=== PATIENT | female | born 1955 | race African-American/Black ===

== ENCOUNTER 2017-10-30 10:34 | Emergency (ER) | payer MEDICARE ==
[2017-10-30 11:38] LABS: #Eosinphils 0.2 thou/uL (0.0-0.7); #Lymphocytes 1.6 thou/uL (1.20-3.40); #Monocytes 0.5 thou/uL (0.11-0.59); %Basophils 0.7 % (0.0-1.0); %Eosinophils 3.4 % (0.0-10.0); %Lymphocytes 24.6 % (21.0-51.0); %Monocytes 8.1 % (0.0-10.0); %Neutrophils 63.2 % (42.0-75.0); Hemoglobin 14.6 g/dL (12.0-16.0); Mean Corpuscular HGB CONC 32.7 g/dL (32.0-36.0); Mean Corpuscular Hemoglobin 29.1 pg (27.0-31.0); Mean Platelet Volume 7.5 fL (7.4-10.4); Platelet Count 254 thou/uL (130-400); RBC Distribution Width 13.4 % (11.5-14.5); Red Blood Cell (RBC) Count 5.01 mill/uL (4.20-5.40); White Blood Cell (WBC) Count 6.4 thou/uL (4.8-10.8)
[2017-10-30 12:00] LABS: ALT (SGPT) 15 U/L (8-55); AST (SGOT) 15 U/L (5-34); Albumin 4.2 g/dL (3.4-4.8); Alkaline Phosphatase 128 U/L (40-150); Anion Gap 15 mmol/L (10-20); BUN (Urea Nitrogen) 18 mg/dL (9.8-20.1); Bilirubin, Total 0.4 mg/dL (0.2-1.2); Calc. Creatinine Clearance 0 mL/min (70-130); Calcium 9.7 mg/dL (7.8-10.44); Carbon Dioxide 18 mmol/L (23-31); Chloride 106 mmol/L (98-107); Estimated GFR-MDRD 54; Globulin 3.1 g/dL (2.4-3.5); Glucose 124 mg/dL (80-115); Lipase 57 U/L (8-78); Potassium 4.4 mmol/L (3.5-5.1); Protein, Total 7.3 g/dL (6.0-8.3); Sodium 135 mmol/L (136-145)
[2017-10-30] MEDS ORDERED: Ondansetron ODT 8 MG TAB ONE (12:55)
[2017-10-30] MEDS ORDERED: Morphine 10 MG/ML VIAL ONE (12:55)
[2017-10-30] MEDS ORDERED: ISOVUE-370 76%-LOCM 1 ML ONE (13:08)
[2017-10-30 13:18] LABS: Bilirubin Negative (Negative); Blood, Urine Negative (Negative); Clarity CLEAR (Clear); Glucose, Urine (Dipstick) Negative (Negative); Leukocyte Trace (Negative); Nitrite Negative (Negative); Protein, Urine (Dipstick) Negative (Neg-Trace); Specific Gravity, Urine 1.014 (1.002-1.036); Urobilinogen 0.2 mg/dL (0.2-1.0); pH, Urine 5.5 (5.0-9.0)
[2017-10-30 13:20] LABS: Bacteria/HPF 3+ HPF (None Seen); Hyaline Casts/LPF 4-6 HYALINE CAST LPF (0-3 Hyaline); Pathc Cast-AUWi Flag 0.58 (0-2.49); RBC/HPF 0-3 HPF (0-3); Squamous Epithelial 0-3 HPF (0-3)
--- NOTE | 2017-10-30 13:22 | CT ---
CT SCAN ABDOMEN AND PELVIS WITH IV CONTRAST: Date: 10/30/17 HISTORY: 62-year-old female with history of left hip pain and left lower quadrant pain for 2 days. FINDINGS: The lung bases are clear. Three vessel coronary artery calcific disease. Granuloma calcification rodríguez ges noted with calcified lymph nodes in the paraesophageal and left lower lobe, evidence for old gran ulomatous disease. The liver, gallbladder, pancreas, spleen, and adrenal glands are unremarkable. No renal calculus or acute obstruction. There appears to be a loop of bowel involved with an umbilica l or periumbilical hernia, but without evidence for proximal dilatation or obstruction. This does not have a significant change when compared to the 10/22/13 CT. Postoperative changes in the region of t he cecum. No abscess, adenopathy, or abnormal fluid collection. IMPRESSION: No significant acute process in the abdomen or pelvis. Loop of small bowel involved with an umbilical hernia, but without evidence for proximal small bowel obstruction or strangulation, with overall camden earance being little changed when compared to the prior study of 10/22/13. No obstruction. No charissa l obstruction. No other significant acute process. POS: [facility]
[2017-10-30 13:27] LABS: Renal Epithelial None Seen HPF (0-3); Transitional Epithelial NONE SEEN HPF (0-3)
== END 2017-10-30 13:56 | disposition home or self-care (01) ==
LOC: ERS 10:34
DX: N39.0 Urinary tract infection, site not specified (principal); R10.32 Left lower quadrant pain; I10 Essential (primary) hypertension; E11.9 Type 2 diabetes mellitus without complications; Z79.82 Long term (current) use of aspirin; Z79.899 Other long term (current) drug therapy; Z79.84 Long term (current) use of oral hypoglycemic drugs
CPT/HCPCS: 36415; 74177; 80053; 81003; 81015; 83690; 85025; 96374; J2270

== ENCOUNTER 2018-02-04 09:39 | Outpatient (CLI) | payer MEDICARE ==
--- NOTE | 2018-02-05 12:04 | MMO ---
BILATERAL MAMMOGRAMS: DATE: 02/04/18 HISTORY: Screening mammography. COMPARISON: 04/10/12. FINDINGS: Scattered fibroglandular densities and benign-appearing calcifications. No dominant mass or suspiciou s calcifications. The study was evaluated with the assistance of computer-aided detection. IMPRESSION: BIRADS 1: Negative Suggest routine follow-up. POS: [facility]
== END 2018-02-04 09:40 | disposition home or self-care (01) ==
LOC: SCSMAMMO 09:39
PROVIDERS: ATTEND Nurse Practitioner
DX: Z12.31 Encounter for screening mammogram for malignant neoplasm of breast (principal)
CPT/HCPCS: 77067

== ENCOUNTER 2019-05-15 09:55 | Inpatient (IN) | payer MEDICARE ==
[2019-05-15 10:28] LABS: Hemoglobin 17.1 g/dL (12.0-16.0); Mean Corpuscular HGB CONC 33.1 g/dL (32.0-36.0); Mean Corpuscular Hemoglobin 28.9 pg (27.0-31.0); Mean Corpuscular Volume 87.5 fL (78.0-98.0); Mean Platelet Volume 10.2 fL (7.4-10.4); Platelet Count 148 thou/uL (130-400); RBC Distribution Width 14.5 % (11.5-14.5); Red Blood Cell (RBC) Count 5.93 mill/uL (4.20-5.40); White Blood Cell (WBC) Count 4.4 thou/uL (4.8-10.8)
[2019-05-15 10:48] LABS: Band 2 % (5-11); Eosinophils 2 % (0-10); Lymphocytes 31 % (21-51); MDiff Complete? YES; Metamyelocyte 1 % (0-0); Monocytes 6 % (0-10); Neutrophil 54 % (42-75); RBC Morphology Normal; Reactive Lymphocytes 4 % (0-10)
--- NOTE | 2019-05-15 10:54 | RAD ---
PORTABLE CHEST: Date: 05/15/19 HISTORY: Cough. COMPARISON: 07/28/18. FINDINGS: Heart size and mediastinum are within normal limits. Lungs are clear of infiltrates. Left-sided MediP ort catheter is present. IMPRESSION: No active intrathoracic disease. POS: [facility]
[2019-05-15] MEDS ORDERED: Aspirin Chewable 81 MG TAB ONE (11:32)
[2019-05-15 12:07] LABS: Albumin 1.7 g/dL (3.4-4.8)
[2019-05-15 12:08] LABS: Chloride 125 mmol/L (98-107); Sodium 144 mmol/L (136-145)
[2019-05-15 12:10] LABS: Globulin 1.3 g/dL (2.4-3.5); Glucose 61 mg/dL (80-115)
[2019-05-15 12:11] LABS: Anion Gap 9 mmol/L (10-20); Carbon Dioxide 12 mmol/L (23-31)
[2019-05-15 12:12] LABS: Bilirubin, Total 0.3 mg/dL (0.2-1.2)
[2019-05-15 12:13] LABS: Alkaline Phosphatase 36 U/L (40-110); Calc. Creatinine Clearance 0 mL/min (70-130); Estimated GFR-MDRD 35
[2019-05-15 12:14] LABS: BUN (Urea Nitrogen) 48 mg/dL (9.8-20.1)
[2019-05-15 12:15] LABS: AST (SGOT) 19 U/L (5-34)
[2019-05-15 12:16] LABS: ALT (SGPT) 11 U/L (8-55)
[2019-05-15 12:20] LABS: Calcium 3.9 mg/dL (7.8-10.44); Potassium 1.8 mmol/L (3.5-5.1)
[2019-05-15] MEDS ORDERED: Lidocaine 1% PF 5 ML VIAL ONE (12:25)
--- NOTE | 2019-05-15 14:13 | RAD ---
Portable frontal chest radiograph: 05/15/2019 COMPARISON: 05/15/2019 HISTORY: Central line placement FINDINGS: This study was performed at 1:37 PM and compared to the prior study performed at 10:11 AM. There is a stable CT injectable left-sided Port-A-Cath. There is a new right-sided vascular catheter, distal tip overlying the region of the SVC. Linear density in the mid right lung zone may represent a suture line. No pneumothorax, pleural fluid , focal consolidation, or alveolar edema. There is atherosclerotic calcification of the aortic arch. IMPRESSION: Portable frontal chest radiograph following placement of right-sided vascular catheter as detailed above.
--- NOTE | 2019-05-15 14:17 | CT ---
Head CT without contrast 05/15/2019: COMPARISON: 12/07/2018 HISTORY: Weakness, hypotension TECHNIQUE: Axial CT imaging at 5 mm intervals from vertex through skull base without contrast FINDINGS: There is cerebral volume loss/encephalomalacia within the left frontal lobe with associated focal periventricular, deep, and subcortical white matter hypodensity suggesting prior infarction. There is a partially calcified mass within the posterior lateral aspect of the posterior fossa on the right measuring 2.2 cm, similar when compared to the prior examination. This suggests a calcified meningioma. Follow-up neurosurgical surgical consultation is advised. IMPRESSION: Stable head CT as described above. No intracranial hemorrhage.
[2019-05-15 14:33] LABS: ALT (SGPT) 25 U/L (8-55); AST (SGOT) 42 U/L (5-34); Albumin 3.9 g/dL (3.4-4.8); Alkaline Phosphatase 80 U/L (40-110); Anion Gap 18 mmol/L (10-20); BUN (Urea Nitrogen) 86 mg/dL (9.8-20.1); Bilirubin, Total 0.6 mg/dL (0.2-1.2); Calc. Creatinine Clearance 0 mL/min (70-130); Calcium 8.7 mg/dL (7.8-10.44); Carbon Dioxide 20 mmol/L (23-31); Chloride 103 mmol/L (98-107); Estimated GFR-MDRD 14; Globulin 2.9 g/dL (2.4-3.5); Glucose 94 mg/dL (80-115); Protein, Total 6.8 g/dL (6.0-8.3); Sodium 137 mmol/L (136-145)
--- NOTE | 2019-05-15 14:35 | CT ---
CT ANGIOGRAM OF THE CHEST: HISTORY: Chest pain. COMPARISON: None. TECHNIQUE: CT angiogram of the chest is performed in the axial plane. Three-dimensional reformatted images are s ubmitted for interpretation. FINDINGS: Mediastinum: There is an enlarged subcarinal lymph node measuring 1.7 x 1.5 cm. Calcified subcarinal lymph nodes are noted. Heart: Normal size. No significant pericardial fluid. Aorta: No aneurysm or dissection. Upper solid abdominal viscera: No abnormality enhancement. Trachea and central bronchi: Patent. Pleural spaces: No effusion. Lung parenchyma: Patchy groundglass opacities throughout the lung parenchyma suggesting multifocal in filtrate. Linear opacity in the right upper lobe likely represents scar from previous partial resection of the right upper lobe. Calcified granuloma in the left lung base. Pneumothorax: None. Osseous structures: No lytic or blastic lesions. Pulmonary arteries: Adequate contrast opacification pulmonary arterial system to the level of segment al arteries. No filling defect to suggest pulmonary embolism. IMPRESSION: 1. No evidence of pulmonary artery embolism to the level of the segmental arteries. 2. Enlarged subcarinal lymph node. Correlate clinically. Consider PET imaging. 3. Partial resection of the right upper lobe. CODE T Transcribed Date/Time: 05/15/2019 2:50 PM
[2019-05-15] MEDS ORDERED: Acetaminophen 325 MG TAB PO PRN (15:00)
[2019-05-15] MEDS ORDERED: Ondansetron PF 4 MG/2 ML Vial IVP PRN (15:00)
[2019-05-15] MEDS ORDERED: Ondansetron ODT 4 MG TAB SL PRN (15:00)
[2019-05-15] MEDS ORDERED: Iopamidol-370 76% 500 ML 1 ML ONE (15:13)
[2019-05-15 16:27] LABS: Troponin I 0.053 ng/mL (< 0.028)
[2019-05-15] MEDS: Lactated Ringer's 1,000 ML IV SCH (18:18)
[2019-05-15 18:26] VITALS: BMI 37.1
--- NOTE | 2019-05-15 18:34 | PDOC.HHP ---
Hospitalist HPI - History of Present Illness weakness, URI symptoms History of Present Illness: This is a 53 year old female who presented with persistent URI symptoms and generaliized weakness. The patient states on the she began having a sore throat and dry cough. She went to see her doctor who gave her cough syrup. A few days after that she started having diarrhea 3-4 times a day, nausea and persistent vomiting. Patient states she hasn't eaten for the past one week because she was scared to. She felt that she had a fever but didn't check her temperature. She denies sick contacts. SHe denies runny nose. She denies chest pain or shortness of breath. She complains of only a mild headache. In addition , the past one week the patient states her vision has been blurry slightly and she has been seeing objects that don't exist. She went to see her PCP today who was unable to get a blood pressure on her and told her to go to the ER. The patient reports history of metastatic colon cancer to her lung back in 2010. She had chemo done and a resection of lung metastases in 2011. She says her last PET scan was in 2013 at [facility] and she hasn't followed up since then. She has not lost weight. ED Course: The patient had initial labs which showed hypokalemia however after speaking with resident, it was thought that it was accidentally drawn from her line. She had a chest X ray which was normal, CTA showed no PE but enlarged subcarinal lymph node. CT head showed partially calcified mass within posterior lateral aspect of posterior fossa measuring 2.2 cm. Patient had difficulty getting IV access, right IJ was placed. Blood pressure was initially systolic 90, after 1L normnal saline it was normal. She was started on maintenance fluids. Additionally troponin was slightly elevated, but G normal. Hospitalist ROS - Review of Systems Constitutional: reports: fever. denies: chills Eyes: reports: vision change (visual hallucinations) ENT: denies: ear discharge Respiratory: reports: cough. denies: shortness of breath, pleuritic pain, sputum Cardiovascular: denies: chest pain, palpitations, orthopnea Gastrointestinal: reports: nausea, vomiting, abdominal pain (from coughing), diarrhea Musculoskeletal: denies: neck pain, shoulder pain Neurological: reports: other (tingling in his feet). denies: weakness All other systems reviewed; all pertinent +/- noted in HPI/Subj - Medication Medications: Active Medications Generic Name Dose Route Start Last Admin Trade Name Viola PRN Reason Stop Dose Admin Lactated Ringer's 1,000 mls @ 125 mls/hr 05/15/19 15:00 05/15/19 18:18 Lactated Ringer's IV 05/16/19 15:01 1,000 mls .Q8H RIN Administration Hospitalist History - Past Medical History Cardiac: reports: HTN, Hyperlipidemia Heme/Onc: reports: Cancer (has history of colon cancer with metastases to the lungs. Surgical resection of lung mets and colon) - Past Surgical History Other Surgical History: Colectomy from colon cancer Hysterectomy Lung surgery for l ibrahima metastases - Family History Family History: reports: hypertension - Social History Smoking Status: Never smoker Alcohol: reports: None (Quit drinking alcohol 5-6 years ago) Drugs: denies: none Living Situation: Alone - Exam General Appearance: NAD, awake alert General - other findings: Morbidly obese Eye: PERRL, anicteric sclera Eye - other findings: Visual acuity normal. Possible cataract right eye? ENT: normocephalic atraumatic, no oropharyngeal lesions Neck: supple, symmetric, no JVD Heart: RRR, no murmur, no gallops, no rubs Respiratory: CTAB, no wheezes, no rales, no ronchi, no tachypnea Gastrointestinal: soft, non-tender, non-distended Extremities: no cyanosis, no clubbing, no edema Skin: normal turgor, no lesions, no rashes Neurological: cranial nerve grossly intact, normal sensation to touch, no focal deficits, no new deficit Musculoskeletal: normal tone, normal strength, no muscle wasting Psychiatric: normal affect, normal behavior, A&O x 3 Hospitalist Results - Labs Result Diagrams: 05/15/19 10:17 05/15/19 13:45 Lab results: WBC 4.4 thou/uL (4.8-10.8) L 05/15/19 10:17 Hgb 17.1 g/dL (12.0-16.0) H 05/15/19 10:17 Hct 51.8 % (36.0-47.0) H 05/15/19 10:17 MCV 87.5 fL (78.0-98.0) 05/15/19 10:17 Plt Count 148 thou/uL (130-400) 05/15/19 10:17 Band Neuts % (Manual) 2 % (5-11) L 05/15/19 10:17 Sodium 137 mmol/L (136-145) 05/15/19 13:45 Potassium 4.0 mmol/L (3.5-5.1) 05/15/19 13:45 Chloride 103 mmol/L (98-107) 05/15/19 13:45 Carbon Dioxide 20 mmol/L (23-31) L 05/15/19 13:45 BUN 86 mg/dL (9.8-20.1) H 05/15/19 13:45 Creatinine 3.95 mg/dL (0.6-1.1) H 05/15/19 13:45 Glucose 94 mg/dL (80-115) 05/15/19 13:45 Calcium 8.7 mg/dL (7.8-10.44) 05/15/19 13:45 Total Bilirubin 0.6 mg/dL (0.2-1.2) 05/15/19 13:45 AST 42 U/L (5-34) H 05/15/19 13:45 ALT 25 U/L (8-55) 05/15/19 13:45 Alkaline Phosphatase 80 U/L (40-110) 05/15/19 13:45 Creatine Kinase 389 U/L (29-168) H 05/15/19 11:34 CK-MB (CK-2) 9.0 ng/mL (0-6.6) H* 05/15/19 10:17 Troponin I 0.053 ng/mL (< 0.028) H 05/15/19 14:57 B-Natriuretic Peptide Less than 10.0 pg/mL (0-100) 05/15/19 10:17 Serum Total Protein 6.8 g/dL (6.0-8.3) 05/15/19 13:45 Albumin 3.9 g/dL (3.4-4.8) 05/15/19 13:45 Lipase 271 U/L (8-78) H 05/15/19 10:17 - EKG Interpretation EKG: NSR Hospitalist H&P A/P - Plan Plan: Chest Xray: no acute disease CTA: no PE, enlarged subcarinal lymph node. Consider PET. Partial resection of right upper lobe CT head: no acute disease. Partially calcified mass within posterior lateral aspect of posterior fossa on right measuring 2.2 cm This is a 63 year old female with history of hypertension, colon cancer metastatic to the lung who presents with sore throat, coughing, diarrhea, abdominal pain and vomiting for the past one week. Found to have ALEJANDRA, troponin elevation, given IV fluids, admitted for further evaluation #ALEJANDRA - creatinine 3.95, baseline creatinine was 1.00, currently 3. Will continue with IV fluids - hold lisinopril/HCTZ, hold metoprolol - will obtain renal ultrasound #Dry cough - possibly viral #Enlarged subarinal lymph node - send flu swab. CTA shows no pneumonia. Enlarged subcarinal lymph node present. Needs outpatient PET - consider pulm consult - kate hansen #Nausea/Vomiting #Diarrhea #History of colon cancer with mets to the lung - will send stool culture - flu swab - CT abdomen with contrast when ALEJANDRA resolves to rule out malignancy #Visual hallucinations #Posterior fossa mass - per patient, had neurosurgery evaluation done in [facility] who told her NTD unless symptomatic - will obtain MRI brain - obtain records from [facility] - visual acuity intact both eyes. Has cloudy lens right pupil so may have cataract, difficult to examine left eye since patient has difficulty keeping it open Elevated troponin - no chest pain, EKG normal. Likely dehydration - continue to trend, monitor on tele #Weakness - consult PT #TYPE II Diabetes with neuropathy - continue pregabalin - hold metformin and invokana due to ALEJANDRA - insulin sliding scale - fingersticks achs - continue aspirin and statin DVT prophylaxis: ambulation Code status: full code
[2019-05-15] MEDS ORDERED: Benzonatate 100 MG CAP PO PRN (19:40)
[2019-05-15] MEDS ORDERED: Dextrose 50% Abboject 50 ML SYRINGE SLOW IVP PRN (19:42)
[2019-05-15] MEDS ORDERED: Dextrose 5% in Water 1,000 ML IV PRN (19:42)
[2019-05-15] MEDS ORDERED: HumaLOG 300 UNITS/3 ML VIAL SC PRN (19:42)
[2019-05-15 20:30] LABS: Hemoglobin 14.1 g/dL (12.0-16.0); Lymphocytes 47 % (21-51); MDiff Complete? YES; Mean Corpuscular HGB CONC 32.9 g/dL (32.0-36.0); Mean Corpuscular Hemoglobin 28.5 pg (27.0-31.0); Mean Corpuscular Volume 86.6 fL (78.0-98.0); Mean Platelet Volume 9.2 fL (7.4-10.4); Monocytes 8 % (0-10); Neutrophil 44 % (42-75); Platelet Count 136 thou/uL (130-400); Platelet Morphology Comment Appears Adequate; RBC Distribution Width 13.9 % (11.5-14.5); Reactive Lymphocytes 1 % (0-10); Red Blood Cell (RBC) Count 4.95 mill/uL (4.20-5.40); White Blood Cell (WBC) Count 4.6 thou/uL (4.8-10.8)
[2019-05-15 20:43] LABS: CKMB 10.2 ng/mL (0-6.6)
[2019-05-16] MEDS: Lactated Ringer's 1,000 ML IV SCH ×3 (02:09→13:57)
[2019-05-16 05:08] LABS: #Lymphocytes 1.3 thou/uL (1.20-3.40); #Monocytes 0.5 thou/uL (0.11-0.59); #Neutrophils 2.6 thou/uL (1.40-6.50); %Basophils 0.9 % (0.0-1.0); %Eosinophils 0.9 % (0.0-10.0); %Lymphocytes 28.9 % (21.0-51.0); %Monocytes 11.5 % (0.0-10.0); %Neutrophils 57.7 % (42.0-75.0); Hemoglobin 13.7 g/dL (12.0-16.0); Mean Corpuscular HGB CONC 33.3 g/dL (32.0-36.0); Mean Corpuscular Hemoglobin 28.9 pg (27.0-31.0); Mean Corpuscular Volume 86.7 fL (78.0-98.0); Mean Platelet Volume 9.4 fL (7.4-10.4); Platelet Count 135 thou/uL (130-400); RBC Distribution Width 13.9 % (11.5-14.5); Red Blood Cell (RBC) Count 4.76 mill/uL (4.20-5.40); White Blood Cell (WBC) Count 4.4 thou/uL (4.8-10.8)
[2019-05-16 05:43] LABS: ALT (SGPT) 23 U/L (8-55); AST (SGOT) 43 U/L (5-34); Albumin 3.7 g/dL (3.4-4.8); Alkaline Phosphatase 81 U/L (40-110); Anion Gap 15 mmol/L (10-20); BUN (Urea Nitrogen) 58 mg/dL (9.8-20.1); Bilirubin, Total 0.8 mg/dL (0.2-1.2); Calc. Creatinine Clearance 47 mL/min (70-130); Calcium 8.8 mg/dL (7.8-10.44); Carbon Dioxide 24 mmol/L (23-31); Chloride 105 mmol/L (98-107); Estimated GFR-MDRD 35; Globulin 2.6 g/dL (2.4-3.5); Glucose 102 mg/dL (80-115); Potassium 3.6 mmol/L (3.5-5.1); Protein, Total 6.3 g/dL (6.0-8.3); Sodium 140 mmol/L (136-145)
[2019-05-16] MEDS ORDERED: Loperamide HCl 2 MG CAP PO PRN (06:07)
[2019-05-16] MEDS ORDERED: Loperamide HCl 2 MG CAP PO SCH (06:15)
[2019-05-16] MEDS: Pregabalin 50 MG CAP PO SCH (09:00)
[2019-05-16] MEDS: Clopidogrel Bisulfate 75 MG TAB PO SCH (09:01)
[2019-05-16] MEDS: Aspirin 325 mg Enteric Coated Tablet PO SCH (09:01)
[2019-05-16] MEDS: Atorvastatin Calcium 40 MG TAB PO SCH (09:01)
--- NOTE | 2019-05-16 09:14 | ULT ---
RENAL ULTRASOUND: DATE: 05/16/2019. COMPARISON: None. HISTORY: Elevated creatinine with nausea and vomiting. TECHNIQUE: Multiplanar, schmitt scale sonographic imaging of the kidneys and urinary bladder obtained. FINDINGS: The left kidney measures 9.0 x 4.7 x 4.2 cm and the right kidney measures 9.3 x 4.6 x 4.5 cm. No kassie al mass, hydronephrosis, or renal stone appreciated on either side. Urinary bladder is grossly unrem arkable. IMPRESSION: Unremarkable renal ultrasound. POS: [facility]
--- NOTE | 2019-05-16 09:20 | MRI ---
BRAIN MRI WITHOUT CONTRAST: DATE: 05/16/2019. COMPARISON: None. HISTORY: History of colon cancer, visual hallucinations, meningioma. TECHNIQUE: Multiplanar, multisequence MRI imaging of the brain is provided without contrast. FINDINGS: The lack of contrast media limits assessment for intracranial metastatic disease. The diffusion weig hted imaging demonstrates a tiny focus of increased signal intensity near the vertex involving the po sterior aspect of the left frontal lobe, measuring approximately 4 mm. Its small size makes it diffi cult to fully assess on the AC map. This could represent a tiny focus of acute infarction but could also potentially represent a tiny metastatic lesion. The gradient echo imaging demonstrates no evide nce for intracranial hemorrhage. There is a calcified extraaxial mass in the posterior fossa on the right posterolaterally measuring 2.1 cm suggesting a calcified meningioma. Arterial flow voids at ax ial the skull base appear grossly unremarkable on the T2 weighted imaging. Imaged paranasal sinuses/ mastoid air cells are well aerated. There is evidence of prior MCA infarction on the left. Regional bone marrow signal intensity appears within normal limits. IMPRESSION: 1. Punctate focus of increased signal on the diffusion weighted imaging within the posterior left fr ontal lobe. This could represent a tiny infarction or less likely a small metastatic lesion. This d istinction cannot be made on the basis of a noncontrast-enhanced MRI. Recommend short-term followup contrast-enhanced brain MRI in 4-6 weeks for further assessment. 2. Findings suggesting a calcified meningioma measuring 2.1 cm within the posterior fossa on the rig ht. CODE T POS: OFF
--- NOTE | 2019-05-16 12:32 | PDOC.HOSPP ---
- Subjective Encounter Date: 05/16/19 Encounter Time: 11:00 Subjective: Patient continues to have diarrhea and dry cough. No shortness of breath. No abdominal pain, nausea, vomiting. Visual problems have now resolved. Denies headaches. She tolerated a diet some Patient tested positive for flu - Objective Vital Signs & Weight: Vital Signs (12 hours) Temp Pulse Resp BP Pulse Ox 05/16/19 11:26 97.9 F 85 20 107/59 L 95 05/16/19 07:30 96.9 F L 79 20 103/57 L 95 05/16/19 04:09 97.9 F 94 22 H 113/55 L 99 Weight Weight 202 lb 6.4 oz Result Diagrams: 05/16/19 04:49 05/16/19 04:49 Additional Labs: Accuchecks 05/16/19 05/15/19 11:31 21:20 POC Glucose 115 H 107 Hospitalist ROS - Review of Systems Constitutional: denies: fever, chills Cardiovascular: denies: chest pain, palpitations, orthopnea Genitourinary: denies: dysuria, frequency - Medication Medications: Active Medications Generic Name Dose Route Start Last Admin Trade Name Freq PRN Reason Stop Dose Admin Aspirin 325 mg 05/16/19 09:00 05/16/19 09:01 Ecotrin PO 325 mg DAILY RIN Administration Atorvastatin Calcium 40 mg 05/16/19 09:00 05/16/19 09:01 Lipitor PO 40 mg DAILY RIN Administration Benzonatate 100 mg 05/15/19 19:40 05/16/19 02:13 Tessalon PO 100 mg Q8H PRN Administration Cough Clopidogrel Bisulfate 75 mg 05/16/19 09:00 05/16/19 09:01 Plavix PO 75 mg DAILY RIN Administration Lactated Ringer's 1,000 mls @ 125 mls/hr 05/15/19 15:00 05/16/19 09:04 Lactated Ringer's IV 05/16/19 15:01 Not Given .Q8H RIN Pregabalin 100 mg 05/16/19 09:00 05/16/19 09:00 Lyrica PO 100 mg DAILY RIN Administration - Exam General Appearance: NAD, awake alert General - other findings: Morbidly obese Eye: PERRL, anicteric sclera ENT: normocephalic atraumatic, no oropharyngeal lesions Neck: supple, symmetric, no JVD, no thyromegaly Heart: RRR, no murmur, no gallops, no rubs Respiratory: CTAB, no wheezes, no rales, no ronchi, no tachypnea Gastrointestinal: soft, non-tender, non-distended Extremities: no cyanosis, no clubbing, no edema Skin: normal turgor, no lesions, no rashes Hosp A/P - Plan Chest Xray: no acute disease CTA: no PE, enlarged subcarinal lymph node. Consider PET. Partial resection of right upper lobe CT head: no acute disease. Partially calcified mass within posterior lateral aspect of posterior fossa on right measuring 2.2 cm Renal ultrasound: normal MRI brain: tiny infarction vs small metastatic lesion in the left frontal lobe. This is a 63 year old female with history of hypertension, colon cancer metastatic to the lung who presents with sore throat, coughing, diarrhea, abdominal pain and vomiting for the past one week. Found to have ALEJANDRA, troponin elevation, given IV fluids, admitted for further evaluation #ALEJANDRA- improving - creatinine 3.95, baseline creatinine was 1.00, currently dpwn to 1.7. Will continue with IV fluids - hold lisinopril/HCTZ, hold metoprolol -renal ultrasound normal - needs UA checked #Influenza A - will start treatment with 75 mg bid given persistent cough/diarrhea #Pancreatitis - patient had elevated lipase, nausea and vomiting - will recheck lipase. No abdominal pain, nausea or vomiting so hold off on imagine #Enlarged subcarinal lymph node #Possible metastatic lesion in left frontal lobe vs infarct? -CTA shows no pneumonia. Enlarged subcarinal lymph node present. Needs outpatient PET - patient with 2.2 cm partially calcified mass. MRI brain shows 2.2 calcified meningioma. DOes not appear to be symptomatic from this currently, needs outpatient monitoring - on posterior frontal lobe possible infarct vs metastatic lesion noted. Onc consult with regard to need for further workup #Diarrhea - secondary to influenza - stool cultures for ova and parasites, campylobacter, salmonella negative - start oseltamivir bid Elevated troponin - no chest pain, EKG normal. Likely dehydration. ECHO pending. Repeat troponin today is normal. CKMB was high yesterday #Weakness - consult PT #TYPE II Diabetes with neuropathy - continue pregabalin - hold metformin and invokana due to ALEJANDRA - insulin sliding scale - fingersticks achs - continue aspirin and statin Dispo: IV fluids until ALEJANDRA resolves Code status: full code
[2019-05-16] MEDS ORDERED: Oseltamivir 75 MG CAP PO SCH (12:45)
[2019-05-16] MEDS: Oseltamivir 75 MG CAP PO SCH ×2 (21:24→22:09)
--- NOTE | 2019-05-16 23:04 | CON ---
DATE OF CONSULTATION: REASON FOR CONSULTATION: Subcarinal lymph node enlargement. HISTORY OF PRESENT ILLNESS: Ms. Childs is a pleasant 63-year-old female with a medical history of colon cancer in 2010. She states she underwent a bowel resection and lung resection for metastatic disease in 2011, and underwent chemo at [facility]. She was last seen by them in 2016 and was told that she was all clear and did not need to follow up. She presented to the emergency room with a 2-3 day history of URI symptoms, weakness, and poor appetite. She was dehydrated. Her creatinine was 3.95. She apparently was having some altered mental status, so underwent a brain CT, which showed a 2.2 cm meningioma that is stable. She also underwent a CT angio of the chest. There was a single enlarged subcarinal lymph node measuring 1.7 x 1.5 cm. There was also calcified subcarinal lymph nodes. There were patchy ground-glass opacities throughout the lung parenchyma suggestive of multifocal infiltrates. There was a scar from her previous resection of her right upper lobe. We were asked to see the patient regarding the lymphadenopathy. The patient denies any weight loss, or shortness of breath. She states she is in her usual state of health until she became ill a couple of days ago. She has not followed up with GI since she was seen in [facility] in 2016. She does have a primary care that she sees in [place]. PAST MEDICAL HISTORY: 1. Colon cancer. 2. Hypertension. 3. Diabetes mellitus. PAST SURGICAL HISTORY: 1. Colectomy. 2. Hysterectomy. 3. Right upper lobe lung resection. ALLERGIES: NO KNOWN DRUG ALLERGIES. HOME MEDICATIONS: 1. Ecotrin. 2. Lipitor. 3. Tessalon. 4. Invokana. 5. D3. 6. Clopidogrel. 7. Lisinopril/hydrochlorothiazide. 8. Metformin. 9. Metoprolol. 10. Pregabalin. FAMILY HISTORY: No history of colon cancer. SOCIAL HISTORY: Lives alone. Has 2 grown children who live nearby. No alcohol, tobacco, or illicit drug use. REVIEW OF SYSTEMS: Positive for URI symptoms, body aches and weakness. Otherwise, negative. PHYSICAL EXAMINATION: VITAL SIGNS: Temperature is 97.1, pulse is 95, respiratory rate 20, BP is 124/56. She is 100% on room air. GENERAL: This is a well-developed, well-nourished female, in no acute distress HEENT: Normocephalic, atraumatic. Pupils are equal and reactive to light. NECK: Supple. CV: Regular rate and rhythm. LUNGS: Clear. ABDOMEN: Soft and nontender. Bowel sounds are positive. EXTREMITIES: There is no clubbing or cyanosis. SKIN: No rash. HEMATOLOGICAL: No petechiae or purpura. NEUROLOGICAL: She is forgetful, but answers questions appropriately. PERTINENT LABS AND X-RAYS: Current WBCs are 4.4, hemoglobin 13.7, hematocrit 41.3, platelet count is 135,000. She has 57% neutrophils, 28% lymphocytes. Chemistry; sodium is 140, potassium 3.6, chloride is 105, CO2 is 24, BUN is 58, creatinine 1.77, calcium 8.8, bilirubin 0.8, AST is 43, ALT is 23, alkaline phosphatase is 81. Troponin is 0.23. Serum total protein 6.3, albumin 3.7, globulin 2.6, lipase 130. Radiology per HPI. ASSESSMENT: 1. Influenza type A. 2. History of metastatic colon cancer. 3. Subcarinal lymphadenopathy. 4. History of meningioma. DISCUSSION: The patient is being treated with Tamiflu. She is feeling much better regarding her enlarged subcarinal lymph node. We will try to obtain medical records from [facility] to compare prior scans and their recommendations regarding her colon cancer. Her findings on her brain MRI should be followed by Neurosurgery. No acute recommendations at this time. We will follow up on these medical records and contact the patient accordingly. Thank you for the consult. Job ID: [id number]
[2019-05-17 05:48] LABS: Hemoglobin 13.1 g/dL (12.0-16.0); Mean Corpuscular HGB CONC 33.1 g/dL (32.0-36.0); Mean Corpuscular Hemoglobin 28.7 pg (27.0-31.0); Mean Corpuscular Volume 86.8 fL (78.0-98.0); Mean Platelet Volume 8.8 fL (7.4-10.4); Platelet Count 151 thou/uL (130-400); RBC Distribution Width 13.8 % (11.5-14.5); Red Blood Cell (RBC) Count 4.56 mill/uL (4.20-5.40); White Blood Cell (WBC) Count 3.7 thou/uL (4.8-10.8)
[2019-05-17 06:10] LABS: BUN (Urea Nitrogen) 26 mg/dL (9.8-20.1)
[2019-05-17 06:18] LABS: Albumin 3.6 g/dL (3.4-4.8)
[2019-05-17 06:20] LABS: Calcium 8.9 mg/dL (7.8-10.44); Chloride 103 mmol/L (98-107); Potassium 3.7 mmol/L (3.5-5.1); Sodium 140 mmol/L (136-145)
[2019-05-17 06:21] LABS: Globulin 2.7 g/dL (2.4-3.5); Glucose 123 mg/dL (80-115); Protein, Total 6.3 g/dL (6.0-8.3)
[2019-05-17 06:22] LABS: Anion Gap 14 mmol/L (10-20); Carbon Dioxide 27 mmol/L (23-31)
[2019-05-17 06:23] LABS: Bilirubin, Total 1.1 mg/dL (0.2-1.2)
[2019-05-17 06:24] LABS: Alkaline Phosphatase 81 U/L (40-110); Calc. Creatinine Clearance 79 mL/min (70-130); Estimated GFR-MDRD 63
[2019-05-17 06:26] LABS: AST (SGOT) 36 U/L (5-34)
[2019-05-17 06:27] LABS: ALT (SGPT) 22 U/L (8-55)
[2019-05-17] MEDS: Clopidogrel Bisulfate 75 MG TAB PO SCH (10:00)
[2019-05-17] MEDS: Atorvastatin Calcium 40 MG TAB PO SCH (10:00)
[2019-05-17] MEDS: Oseltamivir 75 MG CAP PO SCH (10:00)
[2019-05-17] MEDS: Pregabalin 50 MG CAP PO SCH (10:00)
[2019-05-17] MEDS: Aspirin 325 mg Enteric Coated Tablet PO SCH (10:00)
[2019-05-17 12:07] VITALS: BP 131/75; TEMP 98.5
--- NOTE | 2019-05-17 13:21 | DIS ---
DATE OF ADMISSION: 05/15/2019 DATE OF DISCHARGE: 05/17/2019 DISCHARGE DIAGNOSES: 1. Influenza A. 2. Acute renal injury secondary to dehydration. 3. Non-ST elevation myocardial infarction type 2 secondary to dehydration and acute infection. 4. Punctate focus of increased signal in the posterior left frontal lobe consistent with either tiny infarction or less likely small metastatic lesion with recommended 4 to 6 week followup. 5. Visual disturbance. 6. Calcified meningioma measuring 2.1 cm in the posterior fossa on the right. 7. Fatty liver. 8. Atherosclerotic disease of the lower extremities with bilateral three vessel runoff from a prior imaging. 9. History of metastatic colon cancer with lung lesions, status post excision of lung lesions and full chemotherapy done at [facility] with most recent followup sometime between 2013 and 2016 per the patient. 10. Elevated lipase without other findings of pancreatitis on exam. 11. Enlarged subcarinal lymph nodes on imaging. 12. Diarrhea resolved. 13. Generalized weakness. 14. Type 2 diabetes with neuropathy. HISTORY OF PRESENT ILLNESS: This patient is a 63-year-old female, who presented into the hospital through the emergency department. She complained of some generalized weakness, sore throat and dry cough. She saw her PCP, was given a cough suppressant, subsequently had some GI symptoms including some diarrhea, nausea and vomiting. Reported she had not eaten for a week for fear of the vomiting and diarrhea. She reported some blurred vision and "seeing things that don't exist." The patient also reported a history of prior metastatic colon cancer with metastasis to the lung, diagnosed in 2010. She went through chemotherapy and resection of lung masses in 2011 and reported that her last PET scan there was in 2013, although subsequently indicated it might have been as recently as 2017 which she was not sure. She had a workup in the emergency department including chest x-ray which was normal. CTA showed no PE but some enlarged subcarinal lymph nodes. CT of the head showed a partially calcified mass within the posterior lateral aspect of the posterior fossa at 2.2 cm and she had systolic pressure in the 90s. Subsequently, had to have a central line placed and received some IV fluids. Her labs were notable for a white count that was low at 4.7, BUN was 86 and creatinine was elevated at 3.95. Lipase was elevated at 271 and troponin was 0.106. HOSPITAL COURSE: The patient was admitted to the hospital with acute kidney injury and given additional IV fluids. Subsequently, her flu screen did return positive for influenza A. She was placed on isolation, started on p.o. Tamiflu. She had improvement of her renal function with the fluids and her creatinine had returned to 1.0 and her GFR increased to 63. She had a renal ultrasound, which was unremarkable. She had a CTA of the chest, again which showed no evidence of PE. She had a followup MRI of the brain, which showed the calcified meningioma in the posterior fossa on the right measuring 2.1 cm. There was also a punctate focus of increased signal on the diffusion-weighted imaging within the posterior left frontal lobe which could potentially represent a tiny infarction or less likely small metastatic lesion. The distinction could not be made on imaging and the recommendation was for a followup MRI in 4 to 6 weeks with contrast enhancement. The patient was seen in consultation by Oncology, who recommended getting records from [facility] and then following up subsequently. There were no other acute recommendations at the time. She also had a subsequent echocardiogram, which was essentially normal revealing an ejection fraction of 55% to 60% and mild tricuspid regurgitation. The patient herself was feeling considerably better back to her baseline. She reported that she had extensive imaging and workup previously and ultimately was comfortable with discharge to continue on Tamiflu and follow up with her PCP and have outpatient followup with Oncology and Neurosurgery. She reportedly had seen Neurosurgery at [facility] regarding the meningioma, told her there was no intervention indicated unless she became symptomatic, which would certainly be consistent with a longstanding chronic calcified meningioma. Her visual symptoms improved. It was felt to likely be related to acute illness and dehydration. The punctate lesion in the brain was felt to possibly represent a tiny infarction due to hypotension, dehydration, and acute illness. However, she is already on aspirin, Plavix and statin and therefore no further medical intervention was entertained. Her lipase came down on repeat to 130 and again she had no further symptoms of nausea, vomiting, diarrhea, and was tolerating a diabetic diet without difficulty and blood sugars remained well controlled. Troponins continued to trend downward and ultimately were 0.023 within the normal range. Also of note, the patient did have a central line placed initially for IV fluids which will be removed at the time of discharge. DISPOSITION: The patient will be discharged to home. DISCHARGE MEDICATIONS: She will continue with her usual home medication regimen including 1. Vitamin D3. 2. Tessalon Perles. 3. Aspirin 325 daily. 4. Metformin 1 p.o. b.i.d. 5. Plavix 75 daily. 6. Metoprolol 100 mg daily. 7. Lisinopril hydrochlorothiazide 20/12.5 daily. 8. Pregabalin 100 mg daily. 9. Atorvastatin 40 mg daily. 10. Invokana 100 mg daily, and. 11. Will also now be on Tamiflu 75 mg b.i.d. for another 4 days. FOLLOWUP: She will follow up with her PCP, Mel Vogt. She is encouraged to follow up with Oncology who will be working on obtaining her medical records and followup with Neurosurgery locally regarding her meningioma. She will be on a diabetic diet. Her activity is as tolerated. She can return to the hospital should she feel the need to do so at any time. TIME SPENT: Time spent in discharge activities was 35 minutes. Job ID: [id number]
--- NOTE | 2019-05-20 02:59 | PQF ---
Britany Childs DAVID R MD [id number] CLINICAL DOCUMENTATION CLARIFICATION FORM: POST DISCHARGE Addendum to original discharge summary date: ____ Late entry note date: __ DATE:05/20/19 ATTN: Vu Melissa Please exercise your independent, professional judgment in responding to the clarification form. Clinical indicators are provided on the bottom of this form for your review In your clinical opinion based on clinical findings below, can you please identify the condition as the reason for inpatient admission if due to: Please check appropriate box(s): [ ] Acute kidney Injury [ x ] Influenza A [ ] Cerebral Infarct [ ] Other condition, please specify:____ [ ] Unable to determine In addition, please specify: Present on Admission (POA): [ ] Yes [ ] No [ ] Unable to determine For continuity of documentation, please document condition throughout progress notes and discharge summary. Thank You. CLINICAL INDICATORS - SIGNS / SYMPTOMS / LABS Hospitalist H&P p1 05/15 Dr Moy presented with persistent URI symptoms and generalized weakness Hospitalist H&P p1 05/15 Dr Moy She went to the Doctor who gave her cough syrup. A few days after that she started having diarrhea 3-4 times a day, nausea and persistent vomiting Hospitalist H&P p1 05/15 Dr Moy the past one week the patient states her vision has been blurry slightly and she has been seeing objects that don't exist Hospitalist H&P p1 05/[address] head showed partially calcified mass within posterior lateral aspect of posterior fossa measuring 2.2cm Hospitalist H&P p3 05/15 Lab result BUN 86, Creatinine 3.95 DS p2 05/17 Dr Ha The punctate lesion in the brain was felt to possibly represent a tiny infarction due to hypotension, dehydration and acute illness RISK FACTORS Hospitalist H&P p4 05/15 - ALEJANDRA Hospitalist H&P p5 05/15 - Nausea, Vomiting and Diarrhea Hospitalist H&P p5 05/15 - Dehydration Hospitalist PN p4 05/16 Influenza A Hospitalist PN p4 05/16 Diarrhea secondary to Influenza TREATMENTS: SEP 09 1L IV Bolus Hospitalist H&P p1 05/15 - Started maintenance of fluids Ordered 05/16 Brain MRI SEP 09 Oseltamivir BID (This form is maintained as a part of the permanent medical record) 2014 Known. All Rights Reserved [email or web address] [not provided] MTDD
== END 2019-05-17 12:26 | disposition home or self-care (01) | DRG 865 ==
LOC: ERS 09:55 → OBSVTOIN 17:40 → 2SW 17:40 → 2NO 05-16 16:40
PROVIDERS: ADMIT Internal Medicine; ATTEND Internal Medicine
PROC: 02HV33Z Insertion of Infusion Device into Superior Vena Cava, Percutaneous Approach (ICD-10-PCS; principal; 2019-05-15)
DX: J10.2 Influenza due to other identified influenza virus with gastrointestinal manifestations (principal); I21.A1 Myocardial infarction type 2; I63.9 Cerebral infarction, unspecified; N17.9 Acute kidney failure, unspecified; C79.31 Secondary malignant neoplasm of brain; E86.0 Dehydration; K76.0 Fatty (change of) liver, not elsewhere classified; I25.10 Atherosclerotic heart disease of native coronary artery without angina pectoris; I34.0 Nonrheumatic mitral (valve) insufficiency; I10 Essential (primary) hypertension; E78.5 Hyperlipidemia, unspecified; E11.40 Type 2 diabetes mellitus with diabetic neuropathy, unspecified; E66.01 Morbid (severe) obesity due to excess calories; D32.0 Benign neoplasm of cerebral meninges; E87.6 Hypokalemia; Z85.038 Personal history of other malignant neoplasm of large intestine; Z90.49 Acquired absence of other specified parts of digestive tract; Z92.21 Personal history of antineoplastic chemotherapy; Z85.118 Personal history of other malignant neoplasm of bronchus and lung; Z68.37 Body mass index [BMI] 37.0-37.9, adult; Z90.710 Acquired absence of both cervix and uterus; Z79.84 Long term (current) use of oral hypoglycemic drugs; Z79.899 Other long term (current) drug therapy; Z79.02 Long term (current) use of antithrombotics/antiplatelets
CPT/HCPCS: 36416; 36556; 70450; 70551; 71045; 71275; 76770; 80053; 82533; 82550; 82553; 83690; 83880; 84443; 84484; 85025; 85027; 85379; 87045; 87046; 87328; 87329; 87427; 87449; 87631; 93005; 93306; 96360; 96361; J2001; Q9967

== ENCOUNTER 2019-06-16 07:26 | Outpatient (CLI) | payer MEDICARE ==
--- NOTE | 2019-06-16 11:01 | CT ---
CT CHEST WITH IV CONTRAST CT ABDOMEN WITH IV CONTRAST CT PELVIS WITH IV CONTRAST: HISTORY: Malignant neoplasm of cecum. Colon cancer screening post resection with mets to lung status post res ection. COMPARISON: CT pulmonary angiogram of 05/15/[address] abdomen and pelvis of 10/30/2017. FINDINGS: 15 mm enlarged subcarinal lymph node is again seen. Calcified lymph nodes in the subcarinal region a re redemonstrated. No pleural or pericardial effusions are seen. There is a 9 mm low-density lesion in the right lobe of the thyroid gland. There is a calcification in the left lobe of the thyroid gland. No pleural or pericardial effusions are seen. Postop changes of partial resection of the right upper lobe are again seen. There is scarring in the right upper lung. Patchy infiltration of the right perihilar region, left upper lobe and both lower lobes is again seen. Calcified granuloma in the left lower lobe is again noted. The liver, pancreas, adrenal glands, and kidneys are normal. No calcified gallstones are seen. No free air, free fluid, or lymphadenopathy is seen in the abdomen or pelvis. Anterior abdominal wall hernia with unobstructed small bowel loop is again seen. The patient is post hysterectomy. There are vascular calcifications without evidence of aneurysmal dilatation of the thoracoabdominal a stefano. There are degenerative changes in the thoracolumbar spine. IMPRESSION: 1. A 9 mm low-density lesion in the right lobe of the liver. This would be better evaluated with an ultrasound. 2. Stable subcarinal lymphadenopathy and patchy lung infiltrates since 05/15/2019. 3. Old granulomatous disease. 4. Small bowel loop containing ventral hernia. 5. Further evaluation with PET would be helpful. POS: COURTNEY
[2019-06-16] MEDS ORDERED: Iopamidol 370 76% 100 ML VIAL ONE (11:33)
== END 2019-06-16 07:27 | disposition home or self-care (01) ==
LOC: SCSCT 07:26 → CT 07:27
PROVIDERS: ATTEND Internal Medicine Hematology & Oncology
DX: C18.9 Malignant neoplasm of colon, unspecified (principal); C78.00 Secondary malignant neoplasm of unspecified lung; K76.9 Liver disease, unspecified; R59.0 Localized enlarged lymph nodes; D71 Functional disorders of polymorphonuclear neutrophils; K43.9 Ventral hernia without obstruction or gangrene
CPT/HCPCS: 71260; 74177; Q9967

== ENCOUNTER 2019-06-19 11:35 | Outpatient (CLI) | payer MEDICARE ==
--- NOTE | 2019-06-19 14:07 | PET ---
PET CT: HISTORY: A 63-year-old female with colon cancer. Exam requested to evaluate for subsequent treatment. COMPARISON: None. CORRELATION: CT chest, abdomen and pelvis from 06/16/2019. TECHNIQUE: PET scanning with CT attenuation correction was performed from the base of the brain through the prox imal thighs following the intravenous administration of 13 millicuries F18 fluorodeoxyglucose in the left wrist. FINDINGS: There is mildly increased uptake in the subcarinal lymphadenopathy (15 mm) with an SUV of 3. No hernando hypermetabolism is seen in the neck, hilar regions, axillae, abdomen, pelvis or inguinal regions. No hypermetabolic liver, adrenal or skeletal lesions are seen. There is physiologic activity in the GI and tracts and in the visualized portions of the brain. CT scan used for attenuation correction demonstrates no evidence of pleural effusions or ascites. No hypermetabolic pulmonary nodules are seen. No increased FDG localization is seen in the patchy inf iltrates noted on the CT scan. IMPRESSION: Hypermetabolic subcarinal lymph nodes may represent metastatic disease. POS: COURTNEY
== END 2019-06-19 11:36 | disposition home or self-care (01) ==
LOC: PET 11:35
PROVIDERS: ATTEND Internal Medicine Hematology & Oncology
DX: C18.9 Malignant neoplasm of colon, unspecified (principal); R59.0 Localized enlarged lymph nodes; K76.9 Liver disease, unspecified
CPT/HCPCS: 78815; A9552

== ENCOUNTER 2019-07-10 13:08 | Outpatient (CLI) | payer MEDICARE ==
[2019-07-10 14:18] LABS: Anion Gap 14 mmol/L (10-20); BUN (Urea Nitrogen) 25 mg/dL (9.8-20.1); Calc. Creatinine Clearance 0 mL/min (70-130); Calcium 10.1 mg/dL (7.8-10.44); Carbon Dioxide 24 mmol/L (23-31); Chloride 101 mmol/L (98-107); Estimated GFR-MDRD 54; Glucose 124 mg/dL (80-115); Potassium 4.4 mmol/L (3.5-5.1); Sodium 135 mmol/L (136-145)
== END 2019-07-10 13:09 | disposition home or self-care (01) ==
LOC: LABBT 13:08
PROVIDERS: ATTEND Internal Medicine
DX: Z01.812 Encounter for preprocedural laboratory examination (principal); R91.8 Other nonspecific abnormal finding of lung field
CPT/HCPCS: 80048

== ENCOUNTER 2019-07-16 10:55 | Day surgery (SDC) | payer MEDICARE ==
[2019-07-10 12:45] VITALS: BMI 37.8
--- NOTE | 2019-07-11 07:56 | HP ---
SERVICE: Pulmonary Medicine. REASON FOR CONSULT: Mediastinal lymphadenopathy. HISTORY OF PRESENT ILLNESS: The patient is a 63-year-old white female with past medical history significant for colon cancer. She has been in remission for very long period of time. That being said, she had a surveillance PET scan demonstrating a hypermetabolic mediastinal lymph node. Of note, she did have a single metastasis to the right lung. She underwent a wedge resection of this lesion. She denies any current fevers, chills, diarrhea, shortness of breath, nausea, or vomiting. Her weight is stable. She has a decent appetite and she does not endorse any night sweats or other B symptoms. I reviewed this with her today, and plan of action moving forward. The patient also has a heroic snore. She never had anybody witnessed apneic events, but she does wake herself up snoring from time to time. She has nocturia x3 or 4, and infrequently falls asleep during the daytime when she does not mean to. Her [place] sleepiness index is 14. PAST MEDICAL HISTORY: 1. Colon cancer with a single metastatic lesion to the lung, status post wedge resection. 2. Type 2 diabetes mellitus. 3. Hypertension. 4. History of stroke. PAST SURGICAL HISTORY: 1. Resection of colon cancer. 2. Hysterectomy. 3. Wedge resection on the right lung for removal of the metastatic nodule. 4. Appendectomy. FAMILY HISTORY: Heart failure. SOCIAL HISTORY: Negative for alcohol, tobacco, or illicit drug use. She has a remote history of smoking. No exposure to chemicals, dust, asbestos, or tuberculosis. ALLERGIES: NO KNOWN DRUG ALLERGIES. MEDICATIONS: 1. Aspirin 325 mg p.o. daily. 2. Plavix 75 mg p.o. daily. 3. Atorvastatin 40 mg p.o. daily. 4. Invokana 100 mg p.o. daily. 5. Lisinopril/hydrochlorothiazide 20/12.5 mg p.o. daily. 6. Metformin 500 mg p.o. daily. 7. Metoprolol succinate 100 mg daily. 8. Pregabalin 100 mg p.o. daily. REVIEW OF SYSTEMS: General, head, ears, eyes, nose, throat, cardiovascular, respiratory, GI, , musculoskeletal, neurologic, and skin are negative expect as mentioned in HPI. PHYSICAL EXAMINATION: VITAL SIGNS: Afebrile, pulse 74, respirations 19, and saturation 97% on room air. Height 5 feet 2 inches and weight 205 pounds. GENERAL: The patient is awake and alert, in no apparent distress. HEENT: Mallampati 4, neck circumference 17 inches. LUNGS: Wonderful air entry. No prolonged expiratory phase or wheezing is appreciated. HEART: Normal rate. Regular. ABDOMEN: Soft, nontender, and nondistended. Bowel sounds are positive. MUSCULOSKELETAL: No cyanosis or clubbing. No pitting in the bilateral lower extremities. NEUROLOGIC: Grossly nonfocal. LABORATORY DATA: WBC 5.1, hemoglobin 14.0, and platelets 300,000. Creatinine 1.07. Otherwise, a basic metabolic profile is essentially unremarkable. Liver function studies are unremarkable. AST, ALT, and alkaline phosphatase fall within the normal limits. IMAGING: PET scan demonstrates a slightly hypermetabolic subcarinal lymph node. The lymph node is also calcified, which would typically give you benign characteristics. It seems to be more hypermetabolic on the right side of the nodule. ASSESSMENT: 1. Mediastinal lymphadenopathy, hypermetabolic on the right by PET criteria. 2. Pulmonary infiltrate, subtle. 3. History of colon cancer with single metastasis to the right lung, status post wedge resection. 4. Obstructive sleep apnea, suspected. DISCUSSION AND PLAN: I will have the patient undergo an endoscopic bronchial ultrasound-guided transbronchial needle aspiration of the station 7 lymph node. I will have her return to clinic a week after the sample can be arranged. In the meantime, I will also perform a routine bronchoscopy with brush wash and biopsy of the lower lobe region as there is some degree of atelectasis and/or infiltrate in that region. In the meantime, we will also arrange for her to undergo a home sleep study. She will return to clinic after this can be arranged. Job ID: [id number]
[~2019-07-16 10:55] MED LIST: Dexamethasone 20 MG/5 ML VIAL ONE; Lidocaine 1% PF 5 ML VIAL ONE; Ondansetron PF 4 MG/2 ML Vial ONE; PROPOFOL 200 MG/20 ML VIAL ONE; Rocuronium Bromide 10 MG/ML (10ML VIAL) ONE
[2019-07-16] MEDS ORDERED: Fentanyl 100 MCG/2 ML VIAL ONE (14:27)
[2019-07-16] MEDS ORDERED: SUGAMMADEX SODIUM 200 MG/2 ML VIAL ONE (14:27)
[2019-07-16] MEDS ORDERED: SUGAMMADEX SODIUM 500 MG/5 ML VIAL ONE (14:27)
[2019-07-16 16:40] LABS: BF Color Pink; BF RBC Count - Manual 4250 /cumm; BF WBC/Nonhematics Ct. - Manua 206 /cumm; Body Fluid Source Bronchial Washings; Clarity Hazy (Clear); Tube # EDTA
[2019-07-16] MEDS ORDERED: hydrALAZINE 20 MG/ML VIAL ONE (16:42)
--- NOTE | 2019-07-16 16:57 | OP ---
DATE OF PROCEDURE: 07/16/2019 SERVICE: Pulmonary Medicine. PROCEDURES PERFORMED: Fiberoptic bronchoscopy with: 1. Endoscopic bronchial ultrasound-guided transbronchial needle aspiration of station 7. 2. Visual airway inspection. 3. Endobronchial brushing from the right lower lobe. 4. Bronchoalveolar lavage of the right lower lobe. 5. Transbronchial biopsies of the right lower lobe. PREPROCEDURE DIAGNOSES: 1. Mediastinal lymphadenopathy, PET positive. 2. Pulmonary infiltrate. POSTOPERATIVE DIAGNOSES: 1. Mediastinal lymphadenopathy, PET positive. 2. Pulmonary infiltrate. PROCEDURE PIZZA CHEF: Sixto Frias MD MEDICATIONS USED: For list of medications administered, please refer Anesthesia documentation. PREANESTHESIA ASSESSMENT: H and P had been performed. The patient's medications and allergies were reviewed. Informed consent was obtained after discussing the risks, benefits, and rationale for performing the procedure as well as alternative sample collection options. DESCRIPTION OF PROCEDURE: A time-out was performed identifying the correct procedure and patient with name and date of . After induction of anesthesia, the endoscopic bronchial ultrasound bronchoscope was introduced through the endotracheal tube and into the tracheobronchial tree. Miguel survey was performed. Station 7 lymph node was prominent. The superior portion in the inferior portion of the same lymph node had a slightly different ultrasound appearance. It was more intense closer to the angela, and quite less intense distal to it. Multiple samples were taken from the station 7, both proximal and distal. Hemostasis was verified and bronchoscope was subsequently removed. A diagnostic fiberoptic bronchoscope was subsequently introduced into the endotracheal tube. A tracheobronchial tree inspection was carried out with clear identification of the right upper lobe, right middle lobe, right lower lobe, left upper lobe, lingula, and left lower lobe. Anatomy was normal to the segmental level. Endobronchial brushings were obtained from the anterior basal segment of the right lower lobe. BAL, and transbronchial biopsies were obtained from the same segment. Fluoroscopic guidance was used. Hemostasis was verified and bronchoscope was subsequently removed from the patient. Postprocedure fluoroscopy did not demonstrate a pneumothorax. FINDINGS: 1. Angela appeared sharp. 2. Rapid on-site pathology was inconclusive at bedside. 3. No endobronchial disease was identified. 4. Secretions were minimal. SPECIMENS OBTAINED: 1. Pathology on BAL, brushings, transbronchial biopsy, and FNA (with cell block pending). 2. Microbiology for BAL. COMPLICATIONS: None. ESTIMATED BLOOD LOSS: 5 mL. FLUOROSCOPY TIME: Less than 2 minutes. DISPOSITION: The patient will be discharged home with postprocedure instructions. She will return to clinic as previously directed. Job ID: [id number]
[2019-07-16 17:16] LABS: BF Segmented Neutrophils 3 %; Cell Count Non Hematic 95 %; Lymphocytes 2 %
== END 2019-07-16 18:15 | disposition home or self-care (01) ==
LOC: SDC 10:55
PROVIDERS: ATTEND Internal Medicine
PROC: 0B9F8ZX Drainage of Right Lower Lung Lobe, Via Natural or Artificial Opening Endoscopic, Diagnostic (ICD-10-PCS; principal; 2019-07-16)
PROC: 0B968ZX Drainage of Right Lower Lobe Bronchus, Via Natural or Artificial Opening Endoscopic, Diagnostic (ICD-10-PCS; 2019-07-16)
PROC: 0BBF8ZX Excision of Right Lower Lung Lobe, Via Natural or Artificial Opening Endoscopic, Diagnostic (ICD-10-PCS; 2019-07-16)
PROC: 07D78ZX Extraction of Thorax Lymphatic, Via Natural or Artificial Opening Endoscopic, Diagnostic (ICD-10-PCS; 2019-07-16)
DX: R59.0 Localized enlarged lymph nodes (principal); R91.8 Other nonspecific abnormal finding of lung field; E11.9 Type 2 diabetes mellitus without complications; I10 Essential (primary) hypertension; Z85.038 Personal history of other malignant neoplasm of large intestine; Z85.118 Personal history of other malignant neoplasm of bronchus and lung; Z86.73 Personal history of transient ischemic attack (TIA), and cerebral infarction without residual deficits; Z79.02 Long term (current) use of antithrombotics/antiplatelets; Z79.82 Long term (current) use of aspirin; Z79.84 Long term (current) use of oral hypoglycemic drugs; Z79.899 Other long term (current) drug therapy; Z90.49 Acquired absence of other specified parts of digestive tract; Z90.2 Acquired absence of lung [part of]
CPT/HCPCS: 85060; 87070; 87102; 87116; 87205; 87206; 88104; 88112; 88172; 88173; 88177; 88305; 88312; 88313; 89051; J0360; J1100; J2001; J2405; J2704; J3010

== ENCOUNTER 2019-12-12 11:38 | Observation (INO) | payer MEDICARE ==
[2019-12-12] MEDS ORDERED: Ondansetron ODT 4 MG TAB SL PRN (14:51)
[2019-12-12] MEDS ORDERED: Acetaminophen 325 MG TAB PO PRN (14:51)
[2019-12-12] MEDS ORDERED: Ondansetron PF 4 MG/2 ML Vial IVP PRN (14:51)
[2019-12-12 15:05] VITALS: BMI 40.0
--- NOTE | 2019-12-12 15:56 | PDOC.HHP ---
Hospitalist HPI - History of Present Illness dizziness History of Present Illness: Ms. Childs is a 64yo F w/ MHx of distant colon cancer in remission, distant metastasis to lung s/p resection, and distant CVA, HTN, T2DM who presents for dizziness. Patient first noticed being dizzy after standing up and walking towards bathroom, on her way to the bathroom. After that, she's had multiple episodes of dizziness, even when supine though less severe compared to standing , occasionally associated with palpitations. Went to ED in [facility] and was transfered due to suspicion for stroke. Endorses drinking about 80oz of fluids daily, including soda, and bilateral lower extremity numbness that is chronic and for which she used to take gabapentin but stopped for unknown reasons. on encounter, laying comfortably in bed and has no complaints. Denies weight loss, fatigue, fever, chills, night sweats, dyspnea, chest pain, abdominal pain , diarrhea, blood loss, polyuria, increased urinary frequency, focal weakness or numbness, facial asymmetry ED Course: In the ED, orthostats reportedly positive so received bolus IVF and admitted for further management Hospitalist ROS - Review of Systems Constitutional: denies: fever, chills, sweats, weakness, malaise, other Respiratory: denies: cough, dry, shortness of breath, hemoptysis, SOB with excertion, pleuritic pain, sputum, wheezing, other Cardiovascular: denies: chest pain, palpitations, orthopnea, paroxysmal noc. dyspnea, edema, light headedness, other Gastrointestinal: denies: nausea, vomiting, abdominal pain, diarrhea, constipation, melena, hematochezia, other Genitourinary: denies: dysuria, frequency Neurological: denies: weakness, numbness, incoordination, change in speech, confusion, seizures Hospitalist History - Past Medical History Source: patient, old records (PAST MEDICAL HISTORY: 1. Colon cancer with a single metastatic lesion to the lung, status post wedge resection. 2. Type 2 diabetes mellitus. 3. Hypertension. 4. History of stroke. PAST SURGICAL HISTORY : 1. Resection of colon cancer. 2. Hysterectomy. 3. Wedge resection on the right lung for removal of the metastatic nodule. 4. Appendectomy. FAMILY HISTORY : Heart failure. SOCIAL HISTORY: Negative for alcohol, tobacco, or illicit drug use. She has a remote history of smoking. No exposure to chemicals, dust, asbestos, or tuberculosis. ALLERGIES: NO KNOWN DRUG ALLERGIES. MEDICATIONS: 1. Aspirin 325 mg p.o. daily. 2. Plavix 75 mg p.o. daily. 3. Atorvastatin 40 mg p.o. daily. 4. Invokana 100 mg p.o. daily. 5. Lisinopril/hydrochlorothiazide 20/ 12.5 mg p.o. daily. 6. Metformin 500 mg p.o. daily. 7. Metoprolol succinate 100 mg daily. 8. Pregabalin 100 mg p.o. daily.) Heme/Onc: reports: Cancer (has history of colon cancer with metastases to the lungs. Surgical resection of lung mets and colon) - Social History Alcohol: reports: None (Quit drinking alcohol 5-6 years ago) - Exam General Appearance: NAD, awake alert General - other findings: morbidly obese ENT: normocephalic atraumatic, no oropharyngeal lesions, moist mucosa Heart: RRR, no murmur, no gallops, no rubs Respiratory: CTAB, no wheezes, no rales, no ronchi Gastrointestinal: soft, non-tender, non-distended, normal bowel sounds Extremities: no edema Neurological: cranial nerve grossly intact, no weakness, no focal deficits Psychiatric: normal affect, normal behavior, A&O x 3 Hospitalist H&P A/P - Problem (1) High anion gap metabolic acidosis Code(s): E87.2 - ACIDOSIS Status: Acute (2) Orthostatic hypotension Code(s): I95.1 - ORTHOSTATIC HYPOTENSION Status: Acute (3) Hypertension Code(s): I10 - ESSENTIAL (PRIMARY) HYPERTENSION Status: Acute (4) CVA (cerebral vascular accident) Code(s): I63.9 - CEREBRAL INFARCTION, UNSPECIFIED Status: Acute (5) T2DM (type 2 diabetes mellitus) Status: Acute - Plan Plan: #presyncope #orthostatic hypotension -usually hypertensive; presented with orthostatic hypotension, dilute urine, glucosuria, mild anion gap acidosis -likely due to dietary indiscretion resulting in glucose-induced diuresis and dehydration in context of polypharmacy -orthostatic hypotension resolved after IVF bolus in ED -UA negative for infection but shows dilute urine with glucosuria -IVF bolus, maintenance -A1c, beta hydroxybutyrate -control sugar #HTN -currently borderline hypotension, bradycardic -hold antiHTN and monitor #T2DM -endorses dietary indiscretion -10 lantus with low correction dose based on naivity and weight #Disposition/PPx -full code GI PPx: no Ix DVT PPx: lovenox
[2019-12-12] MEDS ORDERED: Sodium Chloride 0.9% 1,000 ML IV SCH (17:45)
[2019-12-12] MEDS ORDERED: Dextrose 50% Abboject 50 ML SYRINGE SLOW IVP PRN (17:59)
[2019-12-12] MEDS ORDERED: Dextrose 5% in Water 1,000 ML IV PRN (17:59)
[2019-12-12] MEDS ORDERED: HumaLOG 300 UNITS/3 ML VIAL SC PRN (17:59)
[2019-12-12] MEDS ORDERED: Insulin Glargine 10 UNITS in Pre-Filled Syringe SC SCH (18:45)
[2019-12-12 18:53] LABS: Hemoglobin A1c 7.1 % (4.0-6.0)
[2019-12-12] MEDS ORDERED: Atorvastatin Calcium 40 MG TAB PO SCH (21:00)
[2019-12-12] MEDS ORDERED: Insulin Glargine 10 UNITS in Pre-Filled Syringe 1 EACH SC SCH (21:00)
[2019-12-13] MEDS: Sodium Chloride 0.9% 1,000 ML IV SCH ×2 (01:41→09:22)
[2019-12-13] MEDS ORDERED: Acetaminophen 325 MG TAB PO PRN (01:44)
[2019-12-13 05:41] LABS: Anion Gap 12 mmol/L (10-20); BUN (Urea Nitrogen) 17 mg/dL (9.8-20.1); Calc. Creatinine Clearance 94 mL/min (70-130); Calcium 8.5 mg/dL (7.8-10.44); Carbon Dioxide 22 mmol/L (23-31); Chloride 106 mmol/L (98-107); Estimated GFR-MDRD 72; Glucose 140 mg/dL (80-115); Potassium 4.1 mmol/L (3.5-5.1); Sodium 136 mmol/L (136-145)
[2019-12-13] MEDS ORDERED: Aspirin 325 mg Enteric Coated Tablet PO SCH (09:00)
[2019-12-13] MEDS ORDERED: Enoxaparin Sodium 30 MG/0.3 ML SYRINGE SC SCH (09:00)
[2019-12-13] MEDS ORDERED: Pregabalin 50 MG CAP PO SCH (09:00)
[2019-12-13] MEDS ORDERED: Lisinopril/Hydrochlorothiazide 20 mg/12.5 mg Tablet PO SCH (09:00)
[2019-12-13] MEDS ORDERED: Clopidogrel Bisulfate 75 MG TAB PO SCH (09:00)
[2019-12-13 15:32] VITALS: BP 131/61; TEMP 97.5
--- NOTE | 2019-12-13 23:59 | DIS ---
DATE OF ADMISSION: 12/12/2019 DATE OF DISCHARGE: 12/13/2019 PRIMARY CARE PROVIDER: Mitchell Guzman MD DISCHARGE DIAGNOSES: 1. Presyncope. 2. Orthostatic hypotension. CONDITION OF PATIENT ON THE DAY OF DISCHARGE: Stable. I assessed Ms. Childs on the day of discharge. She is ambulating well. Vital signs are stable. S1 and S2 are heard, regular. Lungs are clear to auscultation bilaterally. DISCHARGE MEDICATIONS: Metoprolol and losartan have been discontinued. Otherwise, the rest of her home medications were continued and include; 1. Aspirin 325 mg daily. 2. Lipitor 40 mg at bedtime. 3. Invokana 100 mg daily. 4. Plavix 75 mg daily. 5. Lisinopril/hydrochlorothiazide 20/12.5 mg daily. 6. Metformin 1000 mg 2 times a day. 7. Pregabalin 100 mg daily. HOSPITAL COURSE: Ms. Childs is a pleasant 64-year-old lady who was admitted to [facility] on December 12, 2019 for presyncope in the context of orthostatic hypotension. Her antihypertensives were held. She received intravenous fluids with improvement in her symptoms. She was able to ambulate without any problems. She is being discharged home in a stable condition. POST-ACUTE CARE FOLLOWUP: She has been advised to follow up with primary care provider in 3 days. She has been advised to check her blood sugar, blood pressure and heart rate 3 times a day and show the readings to primary care provider. DIET: Diabetic and heart healthy. ACTIVITY: No restrictions. DISCHARGE DESTINATION: Home. On the day of discharge, she had sodium 136, potassium 4.1, blood urea nitrogen 17, creatinine 0.95. Job ID: [id number]
--- NOTE | 2019-12-20 11:01 | EKG ---
Test Reason : Blood Pressure : / mmHG Vent. Rate : 059 BPM Atrial Rate : 059 BPM P-R Int : 194 ms QRS Dur : 090 ms QT Int : 450 ms P-R-T Axes : 017 -10 035 degrees QTc Int : 445 ms Sinus bradycardia with Premature atrial complexes with Abberant conduction Low voltage QRS T wave abnormality, consider anterior ischemia Abnormal ECG Confirmed by SANJU LEW DO ([id number]), book editor IDALMIS PENDLETON ([id number]) on 12/20/2019 11:00:35 AM Referred By: Confirmed By:SANJU LEW DO
== END 2019-12-13 17:33 | disposition home or self-care (01) ==
LOC: ERS 11:38 → 2SE 12:49
PROVIDERS: ADMIT Internal Medicine; ATTEND Internal Medicine
DX: I95.1 Orthostatic hypotension (principal); I10 Essential (primary) hypertension; E11.9 Type 2 diabetes mellitus without complications; E87.2 Acidosis; Z85.038 Personal history of other malignant neoplasm of large intestine; Z85.118 Personal history of other malignant neoplasm of bronchus and lung; Z86.73 Personal history of transient ischemic attack (TIA), and cerebral infarction without residual deficits; Z79.02 Long term (current) use of antithrombotics/antiplatelets; Z79.82 Long term (current) use of aspirin; Z79.84 Long term (current) use of oral hypoglycemic drugs; Z79.899 Other long term (current) drug therapy
CPT/HCPCS: 80048; 82010; 82962 ×2; 83036; 93005; 96360; 96361 ×2; 96372; 97139 ×4; 99285; G0378 ×2; 36415; 36416; J1650; J1815